=== PATIENT | female | born 1990 | race Caucasian/White ===

== ENCOUNTER 2021-12-09 23:13 | Emergency (ER) | payer OTHER, SELFPAY ==
--- NOTE | ~2021-12-09 | XR_ITS ---
EXAMINATION: XR chest 1V portable DATE: 12/10/2021 00:38 INDICATION: Shortness of breath, cough and congestion TECHNIQUE: frontal view of the chest was obtained. COMPARISON: None FINDINGS: The lungs are clear with no focal airspace opacities, pulmonary edema, pleural effusion or pneumothor ax. The cardiomediastinal silhouette is normal. Visualized bones and soft tissues are unremarkable. IMPRESSION: 1. Normal chest radiograph. Reviewed, dictated and finalized at location A. RER IMPRESSION: 1. Normal chest radiograph.
[2021-12-09 23:29] VITALS: BP 129/75; PULSE 91; PULSE 98; RESP 18; O2SAT 100; O2SAT 99
--- NOTE | 2021-12-10 00:09 | ED.GENADULT ---
HPI - General Adult General Chief complaint: Shortness of Breath/Dyspnea Stated complaint: short of breath x 1 day Time Seen by Provider: 12/09/21 23:24 Source: patient and RN notes reviewed Mode of arrival: ambulatory Limitations: no limitations History of Present Illness HPI narrative: 31-year-old female presented [facility] for evaluation of nasal congestion cough and some associated shortness of breath. Patient states she began having some symptoms yesterday but that the symptoms continued to worsen throughout the day today. Patient states prior to arrival she had a significant coughing fit causing her shortness of breath. Patient is not vaccinated. Patient has no known Covid exposure. Patient does have prior history of asthma but does not take any medications for. Patient does not smoke cigarettes but does admit to smoking marijuana but is currently on a THC break. Related Data Allergies Allergy/AdvReac Type Severity Reaction Status Date / Time No Known Allergies Allergy Verified 12/09/21 23:32 Review of Systems Review of Systems: CONSTITUTIONAL: Denies fever, chills, or sweats. EYES: Denies visual changes, redness, or discharge. ENT: Rhinorrhea and nasal congestion CARDIOVASCULAR: Denies chest pain, palpitations, or edema. RESPIRATORY: Cough and shortness of breath GASTROINTESTINAL: Denies abdominal pain, nausea, vomiting, or diarrhea. GENITOURINARY: Denies dysuria or hematuria. SKIN: Denies rash or itching. MUSCULOSKELETAL: Denies back pain, joint pain, or myalgia. NEUROLOGIC: Denies headache, numbness, or weakness. PSYCHIATRIC: Denies anxiety or depression. All systems reviewed & are unremarkable except as noted in HPI and below PMFSH Social History Social History Alcohol intake: current Exam Narrative: APPEARANCE: Well appearing, no pain, no distress, well-nourished. HEAD: normocephalic, atraumatic. EYES: PERRLA/EOMI, conjunctivae clear. NOSE: Nasal congestion THROAT: Pharynx clear, no exudate. NECK: Supple. No adenopathy, no masses. RESPIRATORY: Airway patent, respirations nonlabored. Clear to auscultation bilaterally, no rales, rhonchi, wheezing. CARDIOVASCULAR: Regular rate and rhythm without murmurs rubs or gallops. ABDOMINAL: Soft, nontender, nondistended, normal bowel sounds MUSCULOSKELETAL: Moves all extremities. Strength/ROM intact, No edema, No calf tenderness. SKIN: Warm, dry. Normal Color PSYCHIATRIC: Normal affect/mood. Course Course Emergency Course: Patient is unsure the results of her work-up and imaging. Vital Signs Vital signs: Vital Signs Pulse Rate 91 12/09/21 23:29 Respiratory Rate 18 12/09/21 23:29 Blood Pressure 129/75 12/09/21 23:29 Pulse Oximetry 99 12/09/21 23:29 Pulse Rate 99 12/10/21 01:14 Respiratory Rate 16 12/10/21 01:14 Blood Pressure 114/68 12/10/21 01:14 Pulse Oximetry 100 12/10/21 01:14 Medical Decision Making Vital Signs Vital Signs: Vital Signs Pulse Rate 91 12/09/21 23:29 Respiratory Rate 18 12/09/21 23:29 Blood Pressure 129/75 12/09/21 23:29 Pulse Oximetry 99 12/09/21 23:29 Pulse Rate 99 12/10/21 01:14 Respiratory Rate 16 12/10/21 01:14 Blood Pressure 114/68 12/10/21 01:14 Pulse Oximetry 100 12/10/21 01:14 Lab Data Lab results reviewed: Yes I reviewed the patient's lab results. Labs: Lab Results 12/10/21 Range/Units 00:40 SARS-CoV-2 RNA (RT-PCR) Pending Imaging Data My impression: cxr: No acute cardiopulmonary abnormality. Discharge Plan Discharge Clinical Impression: Nasal congestion, Cough, Acute viral syndrome Patient Disposition: Home, Self-Care Condition: Stable Instructions: Antibiotic Form, Viral Syndrome (ED) Prescriptions: New benzonatate 100 mg capsule 100 mg PO BID PRN (Reason: cough) Qty: 14 RF: 0 albuterol sulfate 90 mcg/actuation HFA aerosol inhaler 1 inh inhalation Q6H PRN (Reason: shortness of breath or wheezing) Qty: 6
[2021-12-10] MEDS: ALBUTEROL SULFATE NEB 2.5 MG/0.5 ML INH 5 MG INHALATION (00:23)
[2021-12-10 00:24] VITALS: PULSE 77; RESP 16
[2021-12-10 00:30] VITALS: PULSE 82; RESP 16
[2021-12-10 00:38] VITALS: BP 114/68; PULSE 103; RESP 20; O2SAT 100
[2021-12-10] MEDS: BENZONATATE 100 MG CAPSULE PO (01:09)
[2021-12-10 01:14] VITALS: BP 114/68; PULSE 99; RESP 16; O2SAT 100
[2021-12-10 12:50] LABS: SARS-CoV-2 RNA PCR Negative
== END 2021-12-10 01:14 | disposition home or self-care (01) ==
PROVIDERS: Emergency Provider Emergency Medicine; PCP Nurse Practitioner Family
DX: B34.9 Viral infection, unspecified (principal); R05.9 Cough, unspecified; R09.81 Nasal congestion; Z20.822 Contact with and (suspected) exposure to COVID-19
CPT/HCPCS: 71045; 94640; 99283; A9270; C9803; U0003; U0005

== ENCOUNTER 2021-12-29 12:40 | Outpatient (CLI) | payer OTHER, SELFPAY ==
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
== END 2021-12-29 12:41 | disposition home or self-care (01) ==
LOC: ANHIMG 12:45
PROVIDERS: PCP Nurse Practitioner Family; Visit Provider Nurse Practitioner Family
DX: M54.2 Cervicalgia (principal); G89.29 Other chronic pain; M47.812 Spondylosis without myelopathy or radiculopathy, cervical region
CPT/HCPCS: 72141

== ENCOUNTER 2022-12-06 08:09 | Emergency (ER) | payer OTHER, SELFPAY ==
--- NOTE | ~2022-12-06 | CT_ITS ---
EXAMINATION: CT abdomen pelvis wo con DATE: 12/06/2022 09:13 INDICATION: Left flank pain TECHNIQUE: Computed tomography (CT) of the abdomen and pelvis was performed without intravenous contr ast. The dose-length product (DLP) was 173.96 mGy-cm. Automated exposure control and iterative recons truction technique were employed. COMPARISON: None FINDINGS: The lung bases are clear. The heart size is normal. The liver, spleen, pancreas, gallbladde r, and adrenal glands are normal. The kidneys are unremarkable. No stones are identified in the kidne ys, ureters, or bladder. No hydronephrosis or hydroureter. No pathologically enlarged abdominal or pe lvic lymph nodes are identified. No free intraperitoneal gas or evidence of bowel obstruction. A mode rate volume of colonic stool is present. IMPRESSION: 1. No CT correlate for the patient's symptoms. Reviewed, dictated and finalized at location A. AROUND PATTERNMAKER
[2022-12-06 08:18] VITALS: BP 112/67; PULSE 94; RESP 18; TEMP 36.5; O2SAT 100
[2022-12-06 08:43] LABS: Appearance Urine Slightly Cloudy (Clear); Bilirubin Urine Negative (Negative); Blood Urine Negative (Negative); Color Urine Yellow (Yellow); Glucose Urine UA Negative (Negative); Ketones Urine Negative (Negative); Leukocyte Esterase Ur Negative LEU/UL (Negative); Nitrate Urine Negative (Negative); Protein Urine Negative (Negative); Specific Grav Ur 1.025 (1.001-1.035); Urobilinogen Urine 0.2 mg/dL (<2.0); pH Urine 5.5 (5.0-9.0)
[2022-12-06 08:47] LABS: Bacteria Urine Trace /hpf; Mucus Urine Rare /lpf; Squamous Epithelial Cell Urine Many /hpf (Few)
[2022-12-06 08:54] LABS: Add Urine Microscopic? YES
--- NOTE | 2022-12-06 09:16 | ED.BACK ---
HPI - Back Pain/Injury General Chief Complaint: Back Pain/Injury Stated Complaint: left side pain Time Seen by Provider: 12/06/22 08:15 History of Present Illness HPI Narrative: Patient presents with 2 weeks of left flank pain, denies any dysuria symptoms, has not really had symptoms like this in the past, does not think that she had injured anything though it is worse with certain movements, she has tried Tylenol and ibuprofen at home without much improvement. Related Data Allergies Allergy/AdvReac Type Severity Reaction Status Date / Time No Known Allergies Allergy Verified 12/06/22 08:31 Review of Systems Review of Systems: CONST: No fever. HEENT: No sore throat C/V: No chest pain RESP: No cough GI: No nausea : No dysuria. M/S: No joint pain. SKIN: No rash. NEURO: [No headache or focal numbness or weakness] PSYCH: [No depression] [facility] Social History Social History Alcohol intake: current Exam Narrative: EXAMINATION OF ORGAN SYSTEMS/BODY AREAS: Constitutional: Vital signs per nursing GENERAL:[No acute distress, non-toxic appearing.] HEAD: Normal with no signs of head trauma. EYES: EOMI, conjunctiva normal ENT: Hearing grossly intact LUNGS: Nonlabored breathing. HEART: [Regular rate and rhythm] ABD: [Soft], [nontender to palpation] BACK: Mild CVA tenderness on left side EXT: Normal range of motion SKIN: [No rashes or lesions.] NEURO: [Alert and oriented x 3. No gross focal sensory or strength deficits.] PSYCH: Normal affect Course Vital Signs Vital signs: Vital Signs Temperature 97.7 F 12/06/22 08:18 Pulse Rate 94 12/06/22 08:18 Respiratory Rate 18 12/06/22 08:18 Blood Pressure 112/67 12/06/22 08:18 Pulse Oximetry 100 12/06/22 08:18 Oxygen Delivery Room Air 12/06/22 08:18 Temperature 97.7 F 12/06/22 08:18 Pulse Rate 66 12/06/22 11:02 Respiratory Rate 20 12/06/22 11:02 Blood Pressure 102/73 12/06/22 11:02 Pulse Oximetry 100 12/06/22 11:02 Oxygen Delivery Room Air 12/06/22 08:18 MDM - Back Pain/Injury MDM Narrative Medical decision making narrative: Patient presents here with left flank pain for 2 weeks, vital signs stable here, on exam she is well-appearing, her urine does show some WBCs though this may be contaminated with squamous cells, I did obtain a CT abdomen/pelvis to rule out stone, this is negative for any acute abnormality or any cause of her symptoms. I did discuss these findings with the patient, I will tentatively start her on antibiotics at this time for possible pyelonephritis and have her follow-up with her primary care doctor, she can always return for any further issues. Lab Data Labs: Lab Results 12/06/22 Range/Units 08:35 Urine Color Yellow (Yellow) Urine Appearance Slightly cloudy (Clear) Urine pH 5.5 (5.0-9.0) Ur Specific [place] 1.025 (1.001-1.035) Urine Protein Negative (Negative) mg/dL Urine Glucose (UA) Negative (Negative) mg/dL Urine Ketones Negative (Negative) mg/dL Ur Blood (Man) Negative (Negative) Urine Nitrate Negative (Negative) Urine Bilirubin Negative (Negative) Urine Urobilinogen 0.2 (<2.0) mg/dL Leukocyte Esterase Rfl Negative (Negative) [place]/UL Urine RBC 3-5 H (0-2) /hpf Urine WBC 10-15 H /hpf Ur Squamous Epith Cells Many H (Few) /hpf Urine Bacteria Trace /hpf Urine Mucus Rare /lpf UCG Bedside Result Negative Reference Range: Negative Urine Characteristics Clear Discharge Plan Discharge Clinical Impression: Left flank pain Patient Disposition: Home, Self-Care Condition: Stable Instructions: Antibiotic Form, Flank Pain (ED) Additional Instructions: Please call your doctor in 2 days; you can always return to the ER if your symptoms worsen or do not improv
[2022-12-06 10:09] VITALS: BP 96/60; PULSE 60; RESP 20; O2SAT 100
[2022-12-06] MEDS: IBUPROFEN 600 MG TABLET PO (10:58)
[2022-12-06] MEDS: SULFAMETHOXAZOLE/TRIMETHOPRIM 800/160 MG DS TABLET 1 TAB PO (10:58)
[2022-12-06 11:02] VITALS: BP 102/73; PULSE 66; RESP 20; O2SAT 100
== END 2022-12-06 11:03 | disposition home or self-care (01) ==
PROVIDERS: Emergency Provider Emergency Medicine
DX: M54.9 Dorsalgia, unspecified (principal)
CPT/HCPCS: 74176; 81001; 81025; 87086; 99284; A9270

== ENCOUNTER 2023-04-22 16:53 | Emergency (ER) | payer OTHER, SELFPAY ==
[2023-04-22 17:43] VITALS: BP 106/66; PULSE 52; RESP 18; TEMP 37.2; O2SAT 100
--- NOTE | 2023-04-22 19:16 | ED.WOUNDLAC ---
HPI - Wound/Laceration General Chief Complaint: Wound/Laceration Stated Complaint: Left index finger lac Time Seen by Provider: 04/22/23 18:30 History of Present Illness HPI narrative: Patient is a 32-year-old female presenting with a finger injury. 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 Sustained a 1 cm skin avulsion. States that it hurts where she is missing skin. Denies further injuries. Thinks her last tetanus update was approximately 5 years ago. Related Data Allergies Allergy/AdvReac Type Severity Reaction Status Date / Time No Known Allergies Allergy Verified 12/06/22 08:31 Review of Systems Review of Systems: All systems reviewed & are unremarkable except as noted in HPI and below PMFSH Social History Social History Alcohol intake: current Exam Narrative: GENERAL: Well-appearing, well-nourished, and in no acute distress. HEAD: Normocephalic, atraumatic. EYES: PERRLA and EOMI. ENT: Nares clear, no rhinorrhea or epistaxis. Mucous membranes moist. NECK: Supple. CHEST: No respiratory distress. HEART: Regular rate and rhythm ABDOMEN: nondistended EXTREMITIES: Normal range of motion. No edema. SKIN: Warm, dry, left index finger with approx 1 cm tissue avulsion to distal tip NEURO: No focal deficits. Alert and oriented x3. PSYCH: Normal mood and affect. Course Vital Signs Vital signs: Vital Signs Temperature 98.9 F 04/22/23 17:43 Pulse Rate 52 L 04/22/23 17:43 Respiratory Rate 18 04/22/23 17:43 Blood Pressure 106/66 04/22/23 17:43 Pulse Oximetry 100 04/22/23 17:43 Oxygen Delivery Room Air 04/22/23 17:43 Temperature 98.9 F 04/22/23 17:43 Pulse Rate 75 04/22/23 20:15 Respiratory Rate 16 04/22/23 20:15 Blood Pressure 115/65 04/22/23 20:15 Pulse Oximetry 100 04/22/23 20:15 Oxygen Delivery Room Air 04/22/23 17:43 MDM - Wound/Laceration MDM Narrative Medical decision making narrative: Patient is a 32-year-old female presenting with a skin avulsion. Patient was using a food and beverage service manager and injured her left index finger. Exam remarkable for the above. There is no laceration to repair. Patient provided with Tylenol, ibuprofen, let gel. Tetanus was updated. Bleeding is controlled. Nonadhesive dressing applied. Discussed appropriate wound care. Advise she follow-up with her PCP. Patient voices understanding and is agreeable with plan. Discharged in stable condition. Differential Diagnosis Differential diagnosis: Likely laceration, abrasion and avulsion of skin Medical Records Attestation: I reviewed the patient's medical records. Critical Care Time Critical Care Time Critical Care Time: No Discharge Plan Discharge Clinical Impression: Avulsion of skin Patient Disposition: Home, Self-Care Condition: Stable Instructions: Antibiotic Form, Skin Avulsion (ED) Additional Instructions: You sustained a skin avulsion to your left index finger today. Your tetanus has been updated. Please use Tylenol and ibuprofen for pain control. Please keep the wound clean and dry for the next 24 hours. You may shower normally after this. Please do not scrub the wound. Please follow-up closely with your primary care provider for a wound check within 3 to 5 days. If you have worsening pain, drainage, fevers, spreading redness, or other concerning symptoms arise, please return to the ER. Prescriptions: No Action benzonatate 100 mg capsule 100 mg PO BID PRN (Reason: cough) Qty: 14 0RF albuterol sulfate 90 mcg/actuation HFA aerosol inhaler 1 inh inhalation Q6H PRN (Reason: shortness of breath or wheezing) Qty: 6.7 0RF sulfamethoxazole-trimethoprim [Bactrim DS] 800-160 mg tablet 1 tablet PO Q12H Qty: 14 0RF Follow-up/Referrals: PHYSICIAN NOT ON STAFF,NONSTAFF [Primary Care Provider] - Stand Alone Forms: Work/School Release IP
[2023-04-22] MEDS: TETANUS,DIPHTHERIA,AC PERTUSSIS ADULT (0.5 ML) BOOSTRIX IM (19:19)
[2023-04-22] MEDS: ACETAMINOPHEN 500 MG TABLET 1000 MG PO (19:19)
[2023-04-22] MEDS: IBUPROFEN 400 MG TABLET 800 MG PO (19:19)
[2023-04-22] MEDS: LIDOCAINE, EPINEPHRINE, TETRACAINE VISCOUS SOLN 3 ML TOPICAL (19:27)
[2023-04-22 20:15] VITALS: BP 115/65; PULSE 75; RESP 16; O2SAT 100
== END 2023-04-22 20:19 | disposition home or self-care (01) ==
PROVIDERS: Emergency Provider Emergency Medicine
DX: S61.201A Unspecified open wound of left index finger without damage to nail, initial encounter (principal); Z23 Encounter for immunization; W29.0XXA Contact with powered kitchen appliance, initial encounter
CPT/HCPCS: 29130; 90471; 90715; 99282; A9270